=== PATIENT | female | born 1945 | race Two or more races ===

== ENCOUNTER 2022-06-30 09:51 | Outpatient (CLI) | payer OTHER | END 2022-06-30 10:00 | disposition home or self-care (01) | LOC: NUCLEAR 09:51 | PROVIDERS: ATTEND General Practice | DX: M81.0 Age-related osteoporosis without current pathological fracture (principal) ==

== ENCOUNTER 2022-11-06 10:02 | Outpatient (CLI) | payer OTHER | END 2022-11-06 10:04 | disposition home or self-care (01) | LOC: NUCLEAR 10:02 | PROVIDERS: ATTEND General Practice | DX: I67.2 Cerebral atherosclerosis (principal); I70.0 Atherosclerosis of aorta; I69.998 Other sequelae following unspecified cerebrovascular disease ==

== ENCOUNTER 2023-08-24 11:07 | Outpatient (CLI) | payer OTHER | END 2023-08-24 11:13 | disposition home or self-care (01) | LOC: RAD 11:07 | PROVIDERS: ATTEND General Practice | DX: I70.0 Atherosclerosis of aorta (principal); J45.20 Mild intermittent asthma, uncomplicated ==

== ENCOUNTER 2023-08-28 13:07 | Outpatient (CLI) | payer OTHER | END 2023-08-28 13:32 | disposition home or self-care (01) | LOC: MAMO-SONO 13:07 | PROVIDERS: ATTEND General Practice | DX: Z12.31 Encounter for screening mammogram for malignant neoplasm of breast (principal); N60.19 Diffuse cystic mastopathy of unspecified breast ==

== ENCOUNTER 2023-10-22 12:28 | Emergency (ER) | payer OTHER ==
[~2023-10-22] VITALS: Ht 157.5 cm; Wt 59.0 kg
[2023-10-22 14:22] LABS: HEMATOCRIT 40.5 % (36.0-45.00); HEMOGLOBIN 13.7 g/dL (12.0-15.00); MEAN CORPUSCULAR HEMOGLOBIN 31.2 pg (27.00-32.0); MEAN CORPUSCULAR HGB CONC 33.9 g/dl (32.0-36.0); PLATELET COUNT 247 K/uL (150-450); RED CELL DISTRIBUTION WIDTH 13.4 % (11.5-14.5)
[2023-10-22 14:48] LABS: ALBUMIN 3.6 gm/dL (3.4-5.0); BILIRUBIN TOTAL 0.63 mg/dL (0.3-1.2); CALCIUM 9.7 mg/dL (8.5-10.1); CREATININE SERUM 0.84 mg/dL (0.55-1.02); GFR 65.4; GLOBULINA 4.3 G/DL (2.4-3.5); POTASSIUM 4.33 mEq/L (3.5-5.1); TOTAL PROTEIN 7.9 gm/dL (6.4-8.2)
[2023-10-22] MEDS ORDERED: BENZONATATE200 M1 PO (15:21)
[2023-10-22] MEDS ORDERED: PAXLOVID 300-11 EACH PO (15:21)
[2023-10-22] MEDS ORDERED: TUSNEL LIQUID178 ML PO (15:21)
[2023-10-22] MEDS ORDERED: XOPENEX CO1.25 MG/0. IH (15:21)
== END 2023-10-22 15:29 | disposition home or self-care (01) ==
LOC: ER 12:29
PROVIDERS: General Practice
DX: U07.1 COVID-19 (principal); J44.9 Chronic obstructive pulmonary disease, unspecified; Z91.013 Allergy to seafood
CPT/HCPCS: 36415; 71250; 82803; 94640; 96365; 99284; J2930

== ENCOUNTER 2025-04-20 12:19 | Outpatient (CLI) | payer OTHER ==
[~2025-04-20 12:19] MED LIST: BENZONATATE200 M1 PO; PAXLOVID 300-11 EACH PO; TUSNEL LIQUID178 ML PO; XOPENEX CO1.25 MG/0. IH
== END 2025-04-20 12:21 | disposition home or self-care (01) ==
LOC: MAMO-SONO 12:19
PROVIDERS: ATTEND General Practice
DX: N60.19 Diffuse cystic mastopathy of unspecified breast (principal); Z12.39 Encounter for other screening for malignant neoplasm of breast; Z12.31 Encounter for screening mammogram for malignant neoplasm of breast